=== PATIENT | female | born 1985 | race Asian ===

== ENCOUNTER 2017-10-20 13:54 | Outpatient (CLI) | payer BC | END 2017-10-20 13:55 | disposition home or self-care (01) | LOC: BICULT 13:54 | PROVIDERS: ATTEND Family Medicine | DX: Z34.92 Encounter for supervision of normal pregnancy, unspecified, second trimester (principal); Z3A.23 23 weeks gestation of pregnancy | CPT/HCPCS: 76805 ==

== ENCOUNTER 2018-02-19 09:32 | Inpatient (IN) | payer BC ==
[2018-02-19 11:00] LABS: Amnisure Test RUPTURE DETECTED (No Rupture)
[2018-02-19 11:01] LABS: Amnisure Internal Control QC ACCEPTABLE (ACCEPTABLE)
[2018-02-19] MEDS ORDERED: Promethazine HCl 25 MG/ML VIAL IM PRN ×2 (11:38→16:24)
[2018-02-19] MEDS ORDERED: Ibuprofen 800 MG TAB PO PRN (11:38)
[2018-02-19] MEDS ORDERED: NS / Oxytocin 40 units/1000ml 1,000 ML IV PRN (11:38)
[2018-02-19] MEDS ORDERED: Ondansetron HCl/PF 4 MG/2 ML Vial IVP PRN ×2 (11:38→16:24)
[2018-02-19] MEDS ORDERED: HYDROcodone/Acetaminophen 5/325 mg Tablet PO PRN ×2 (11:38)
[2018-02-19] MEDS ORDERED: Zolpidem Tartrate 5 MG TAB PO PRN (11:38)
[2018-02-19] MEDS ORDERED: Butorphanol Tartrate 1 MG/ML VIAL SLOW IVP PRN (11:38)
[2018-02-19] MEDS ORDERED: Lidocaine 1% (PF) 30 ML VIAL SC PRN (11:38)
[2018-02-19] MEDS ORDERED: Lactated Ringer's 1,000 ML IV SCH (11:45)
[2018-02-19] MEDS ORDERED: NS w/ Oxytocin 10 units 500 ML IV SCH (11:45)
[2018-02-19 12:57] LABS: Hemoglobin 14.5 g/dL (12.0-16.0); Mean Corpuscular HGB CONC 34.9 g/dL (32.0-36.0); Mean Corpuscular Hemoglobin 29.6 pg (27.0-31.0); Mean Platelet Volume 6.6 fL (7.4-10.4); Platelet Count 190 thou/uL (130-400); RBC Distribution Width 12.9 % (11.5-14.5); Red Blood Cell (RBC) Count 4.88 mill/uL (4.20-5.40); White Blood Cell (WBC) Count 8.4 thou/uL (4.8-10.8)
[2018-02-19 13:30] LABS: HBSAg Index 0.25 S/CO (0-0.99); Hep B Surf Ag Non-Reactive S/CO (NonReactive)
[2018-02-19 13:31] LABS: Syphilis Antibody Nonreactive (Nonreactive); Syphilis Antibody Index 0.03 S/CO (<1.00 Non-Reactive)
[2018-02-19] MEDS ORDERED: DISCONTINUE ALL PREVIOUS NARCOTICS FS SCH (15:30)
[2018-02-19] MEDS ORDERED: Bupivacaine 0.5% 10 ML VIAL ONE (15:59)
[2018-02-19] MEDS ORDERED: Fentanyl 100 MCG/2 ML VIAL ONE (15:59)
[2018-02-19] MEDS ORDERED: diphenhydrAMINE 50 MG/ML VIAL IVP PRN (16:24)
[2018-02-19] MEDS ORDERED: Naloxone HCl 0.4 mg/ml Vial IVP PRN ×2 (16:24)
[2018-02-19] MEDS: Bupivacaine 0.5% 20 ML, fentaNYL Citrate/PF 400 MCG in Sodium Chloride 0.9% 72 ML EPIDURAL SCH ×2 (16:24→23:24)
[2018-02-19] MEDS ORDERED: Acetaminophen 325 MG TAB PO PRN (16:24)
[2018-02-19] MEDS ORDERED: ePHEDrine/0.9% NaCl/PF SYRINGE 50 mg/10 ml SLOW IVP PRN (16:24)
[2018-02-19] MEDS ORDERED: Lactated Ringer's 500 ML IV PRN (16:24)
[2018-02-19] MEDS ORDERED: Eucerin (Mineral Oil/Petrolatum,White) 30 gm Jar TOP PRN (16:24)
[2018-02-19] MEDS ORDERED: Fentanyl 4mcg/Marcaine 0.1% Cassette 100 ML EPIDURAL SCH (16:30)
[2018-02-19] MEDS ORDERED: Communication Order-Pharmacy FS SCH (16:30)
[2018-02-19] MEDS: Lactated Ringer's 1,000 ML IV SCH ×2 (20:52)
[2018-02-20] MEDS: Lactated Ringer's 1,000 ML IV SCH ×2 (03:36→13:50)
[2018-02-20] MEDS: Bupivacaine 0.5% 20 ML, fentaNYL Citrate/PF 400 MCG in Sodium Chloride 0.9% 72 ML EPIDURAL SCH (05:22)
--- NOTE | 2018-02-20 08:31 | PDOC.EVN ---
Event Note - Event Note Event Note: Pt seen and examined. Labored all night. Just did 45 minutes in knee-chest position. FWB reassuring - FHT 165 with moderate variability, no decelerations. Category II. Continue EFM. SVE: 9.5/100/+1. Continue to labor down for now. Recheck in 30-45 minutes. Hopefully we can push at that time.
--- NOTE | 2018-02-20 12:09 | PDOC.OPDEL ---
OB Operative/Delivery Note Delivery Dr/Surgeon: Meño Pre-Delivery Diagnosis: active labor Procedure/Post Delivery Dx: spontaneous vaginal delivery Weeks gestation: 40 Anesthesia: epidural - Additional Findings/Plan Placenta delivered: spontaneous Repaired Obstetrical Laceration: 2nd degree Estimated blood loss: 300 Compilations/Other Findings: No complications. Routine delivery. No nuchal cord. Meconium stained fluid. Post delivery plan: routine recovery
[2018-02-20] MEDS ORDERED: Milk Of Magnesia 30 ML UDCUP PO PRN (12:33)
[2018-02-20] MEDS ORDERED: diphenhydrAMINE 25 MG CAP PO PRN (12:33)
[2018-02-20] MEDS ORDERED: Benzocaine/Menthol 20-0.5% 60 ML CAN TOP PRN (12:33)
[2018-02-20] MEDS ORDERED: Bisacodyl 10 MG SUPP PR PRN (12:33)
[2018-02-20] MEDS ORDERED: Lanolin Ointment 7 GM TUBE TOP PRN (12:33)
[2018-02-20] MEDS ORDERED: NS / Oxytocin 40 units/1000ml 1,000 ML IV SCH (12:33)
[2018-02-20] MEDS ORDERED: Adacel (T-DAP) 0.5 ML VIAL IM ONE (12:33)
[2018-02-20] MEDS: Ibuprofen 800 MG TAB PO SCH ×2 (13:49→22:03)
[2018-02-20] MEDS: Ferrous Sulfate 325 MG TAB PO SCH (18:11)
[2018-02-20] MEDS: Docusate Calcium (SURFAK) 240 MG CAP PO SCH (22:03)
[2018-02-20] MEDS: HYDROcodone/Acetaminophen 5/325 mg Tablet PO PRN (23:54)
[2018-02-21] MEDS: HYDROcodone/Acetaminophen 5/325 mg Tablet PO PRN ×4 (04:54→17:11)
[2018-02-21 05:47] LABS: Hemoglobin 10.9 g/dL (12.0-16.0); Mean Corpuscular HGB CONC 34.6 g/dL (32.0-36.0); Mean Corpuscular Hemoglobin 29.9 pg (27.0-31.0); Mean Corpuscular Volume 86.3 fl (81.0-99.0); Mean Platelet Volume 6.5 fL (7.4-10.4); Platelet Count 128 thou/uL (130-400); RBC Distribution Width 12.6 % (11.5-14.5); Red Blood Cell (RBC) Count 3.63 mill/uL (4.20-5.40); White Blood Cell (WBC) Count 15.4 thou/uL (4.8-10.8)
--- NOTE | 2018-02-21 06:20 | PDOC.PP ---
Post Progress Note Post Day #: 1 Subjective: Doing well PO intake tolerated: yes Flatus: yes Ambulation: yes Vital Signs (12 hours) Temp Pulse Resp BP Pulse Ox 02/21/18 04:54 98.4 F 65 17 107/62 97 02/21/18 04:52 98.4 F 65 17 02/20/18 23:56 98.0 F 79 17 105/63 98 02/20/18 23:53 98.0 F 79 17 02/20/18 20:42 98.4 F 75 18 105/67 98 Weight Weight 5.573 oz - Physical Examination Cardiovascular: no m/r/g Respiratory: clear to auscultation bilaterally Abdominal: + bowel sounds, lochia Extremities: negative homans (B) Neurological: no gross focal deficits Psychiatric: A&Ox3, normal affect Result Diagrams: 02/21/18 05:26 Additional Labs: Post Labs Blood Type O POSITIVE 02/19/18 12:52 Hep Bs Antigen Non-Reactive S/CO (NonReactive) 02/19/18 12:52 (1) Vaginal delivery Code(s): O80 - ENCOUNTER FOR FULL-TERM UNCOMPLICATED DELIVERY Status: Acute (2) Obstetrical laceration, second degree Code(s): O70.1 - SECOND DEGREE PERINEAL LACERATION DURING DELIVERY Status: Acute - Assessment/Plan PPD day 1. Routine care Prob [facility] PPD2 tomorrow
[2018-02-21] MEDS: Ibuprofen 800 MG TAB PO SCH ×3 (06:28→21:43)
[2018-02-21] MEDS: Docusate Calcium (SURFAK) 240 MG CAP PO SCH ×2 (08:47→21:43)
[2018-02-21] MEDS: Ferrous Sulfate 325 MG TAB PO SCH (09:59)
--- NOTE | 2018-02-22 05:41 | PDOC.PP ---
Post Progress Note Post Day #: PPD#2 Subjective: Doing well, no c/o. PO intake tolerated: yes Ambulation: yes Vital Signs (12 hours) Temp Pulse Resp BP Pulse Ox 02/21/18 19:45 98.1 F 70 18 02/21/18 19:44 98.1 F 18 122/68 98 Weight Weight 158 g - Physical Examination General: NAD Respiratory: non-labored breathing Fundus firm & at: firm below umbilicus Extremities: negative homans (B) Psychiatric: A&Ox3, normal affect Result Diagrams: 02/21/18 05:26 Additional Labs: Post Labs Blood Type O POSITIVE 02/19/18 12:52 Hep Bs Antigen Non-Reactive S/CO (NonReactive) 02/19/18 12:52 - Assessment/Plan Doing well. DC home. Precautions. F/u with Dr. Cruz Richards as instructed, or 2 weeks.
[2018-02-22] MEDS: Ibuprofen 800 MG TAB PO SCH ×2 (05:49→14:13)
[2018-02-22] MEDS: Docusate Calcium (SURFAK) 240 MG CAP PO SCH (10:15)
[2018-02-22 11:37] VITALS: BP 117/62; TEMP 98.2
== END 2018-02-22 15:40 | disposition home or self-care (01) | DRG 775 ==
LOC: L&D/OP 09:32 → L&D 11:51 → 3SE 02-20 13:51 → 3SW 02-21 17:03
PROVIDERS: ADMIT Family Medicine; ATTEND Family Medicine
PROC: 10E0XZZ Delivery of Products of Conception, External Approach (ICD-10-PCS; principal; 2018-02-19)
PROC: 0KQM0ZZ Repair Perineum Muscle, Open Approach (ICD-10-PCS; 2018-02-19)
DX: O70.1 Second degree perineal laceration during delivery (principal); Z37.0 Single live birth; Z3A.40 40 weeks gestation of pregnancy; O77.0 Labor and delivery complicated by meconium in amniotic fluid
CPT/HCPCS: 36415; 51702; 84112; 85027; 86780; 86850; 86900; 86901; 87340; 90715; 99285; J2001; J3010; J3490; J7050